=== PATIENT | female | born 1955 | race Caucasian/White ===

== ENCOUNTER 2023-04-25 14:20 | Outpatient (CLI) | payer MEDICARE, OTHER, SELFPAY | END 2023-04-25 14:21 | disposition home or self-care (01) | PROVIDERS: Visit Provider Family Medicine | DX: M51.36 Other intervertebral disc degeneration, lumbar region (principal); M54.16 Radiculopathy, lumbar region | CPT/HCPCS: 64483; Q9966 ==

== ENCOUNTER 2023-06-24 09:05 | Outpatient (CLI) | payer MEDICARE, OTHER, SELFPAY | END 2023-06-24 09:06 | disposition home or self-care (01) | LOC: INJ CL 09:06 | PROVIDERS: Visit Provider Family Medicine | DX: M54.16 Radiculopathy, lumbar region (principal); M51.26 Other intervertebral disc displacement, lumbar region | CPT/HCPCS: 64483; J1100; Q9966 ==